=== PATIENT | male | born 1930 | race Hispanic/Latino ===

== ENCOUNTER 2017-09-17 06:10 | Inpatient (IN) | payer MEDICARE, BC ==
[2017-09-08 10:04] VITALS: BMI 24.2
[2017-09-17] MEDS ORDERED: HEPARIN-NS 5,000 UNITS/500 ML 10,000 UNIT/1,000 ML BAG IV ONE (07:29)
[2017-09-17] MEDS ORDERED: Iodixanol 320 MG/ML 200 ML BOTTLE IV ONE (07:29)
[2017-09-17] MEDS ORDERED: Midazolam 2 MG/2 ML VIAL ONE (07:46)
[2017-09-17] MEDS ORDERED: ceFAZolin IV 1 gm in Dextrose 1 GM/50 ML BAG IVPB ONE (07:47)
[2017-09-17] MEDS ORDERED: Sodium Chloride 0.9% 500 ML IV ONE ×2 (07:56→08:05)
[2017-09-17] MEDS ORDERED: Lactated Ringer's 1,000 ML IV ONE ×5 (08:00→13:01)
[2017-09-17] MEDS: Lidocaine 1% Inj (20ml) ONE ×2 (08:23→08:24)
[2017-09-17] MEDS ORDERED: HYDROmorphone 0.5 mg/0.5 ml ISec IVP PRN (09:47)
--- NOTE | 2017-09-17 10:24 | PCM.SURG1 ---
Surgeon's Initial Post Op Note - Surgeon's Notes Surgeon: robe Central Supply Technician Supervisor: karen Type of Anesthesia: IV Sedation Anesthesia Administered By: alvaro Pre-Operative Diagnosis: AAA Operative Findings: successful deployment of endologix graft. 25-60/16x40. proximal extension 28x75 Post-Operative Diagnosis: same Operation Performed: PEVAR. percutaneous endovascular aneurysm repair. with endologix graft Specimen/Specimens Removed: 0 Estimated Blood Loss: EBL {In ML}: 250 Blood Products Given: N/A Drains Used: No Drains Post-Op Condition: Good Date of Surgery/Procedure: 09/17/17 Time of Surgery/Procedure: 10:27
[2017-09-17] MEDS ORDERED: Oxycodone/Acetaminophen 5/325 mg Tab PO PRN (10:32)
[2017-09-17 11:11] LABS: BASO # 0.1 K/uL (0.0-0.2); EOS # 0.1 K/uL (0.0-0.7); EOS % 2.4 % (0.0-4.0); HEMATOCRIT 28.8 % (35.0-51.0); LYMPH # 1.3 K/uL (1.0-4.3); LYMPH % 21.9 % (20.0-40.0); MEAN CELL VOLUME 89.9 fL (80.0-94.0); MEAN CORPUSCULAR HEMOGLOBIN 30.5 pg (27.0-31.0); MEAN CORPUSCULAR HGB CONC 33.9 g/dL (33.0-37.0); MEAN PLATELET VOLUME 7.1 fL (7.2-11.7); MONO # 0.6 K/uL (0.0-0.8); MONO % 10.6 % (0.0-10.0); RED CELL DISTRIBUTION WIDTH 14.2 % (11.5-14.5); WHITE BLOOD COUNT 6.1 K/uL (4.8-10.8)
[2017-09-17 11:36] LABS: CHLORIDE 103 mmol/L (98-107); POTASSIUM 3.5 mmol/L (3.6-5.2); SODIUM 135 mmol/L (132-148)
[2017-09-17 11:38] LABS: BILIRUBIN,TOTAL 0.8 mg/dL (0.2-1.3); GFR AFRICAN-AMERICAN > 60
[2017-09-17 11:39] LABS: ALB/GLOB RATIO 0.9 (1.0-2.1); ALKALINE PHOSPHATASE 77 U/L (38-126); ALT/SGPT 30 U/L (21-72); AST/SGOT 19 U/L (17-59); BLOOD UREA NITROGEN 9 mg/dL (9-20); CARBON DIOXIDE 24 mmol/L (22-30); GLUCOSE,RANDOM 116 mg/dL (75-110); TOTAL PROTEIN 5.6 g/dL (6.3-8.3)
[2017-09-17] MEDS ORDERED: Dextrose 5%/0.45% NS 1,000 ML IV ONE (15:00)
--- NOTE | 2017-09-17 16:23 | RAD ---
PROCEDURE: Intraoperative fluoroscopy HISTORY: ABD. AORTIC ANEURYSM COMPARISON: Not available TECHNIQUE: Intraoperative fluoroscopy was provided for aorto bi-iliac stent placement. Total time of fluoroscopy was 689.3 seconds. FINDINGS: Multiple fluoroscopic spot films are submitted. These films are on file for review. IMPRESSION: Fluoroscopy provided.
[2017-09-17] MEDS: Dextrose 5%/0.45% NS 1,000 ML IV SCH ×3 (20:56→23:57)
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
--- NOTE | 2017-09-18 03:44 | OP ---
PROCEDURE DATE: 09/17/2017 PREOPERATIVE DIAGNOSIS: Abdominal aortic aneurysm. POSTOPERATIVE DIAGNOSIS: Abdominal aortic aneurysm. PROCEDURE CARRIED OUT: TAVR, percutaneous endovascular aneurysm repair using an Endologix graft. SURGEON: Dr. San. CO-SURGEON: Dr. Latham. COSTUMER: Dr. Shadi Avendano. TYPE OF ANESTHESIA: Local anesthesia. ANESTHESIA ADMINISTERED BY: Mr. YanPHILLIP INDICATIONS: An 87-year-old man found to have an abdominal aortic aneurysm, previously increased in size over 5.3 cm. OPERATIVE FINDINGS: 1. Renal artery: The accessory renal artery was broad in the right side. 2. There was a successful deployment of an Endologix stent graft without any evidence of any endoleak at the end of the procedure. DESCRIPTION OF PROCEDURE: The patient was given local anesthesia using ultrasound guidance. Both common femoral arteries were accessed, and using micropuncture technique, a guidewire is advanced through the level of the renal arteries. After this had been carried out, we then placed a snare up the left side and then subsequently placed the Endologix device on the right side. The wire was snared and brought down to the appropriate position and the device was loaded onto the aortic bifurcation. After this had been done successfully, we then placed a pigtail catheter up the left side. We obtained the level of renal arteries and then subsequently particularly the right renal accessory, which was the lowest vessel that we are going to. We then carefully mapped this out and deployed the second suprarenal extension to this level with good coverage of the neck of the graft, but no impingement on flow into the right side. This was successfully deployed. After this had been successfully deployed, we loosened all the devices so that this was appropriately positioned, and we ballooned the left common iliac artery with an 8 mm balloon, which was adequate for the area. We did not deploy any other balloons during the procedure. We then took a final run, which did not show any evidence of any endoleak. During the procedure, the patient received full anticoagulation with heparin. Perclose, 2 devices have been redeployed in the right groin to aid in the closure afterwards. Blood loss for the procedure was 250 to 300 mL, primarily due to ooze from the right groin device, but other than this everything went quite smoothly. So at the end, we had placed wires up into both the aorta on both sides. We deployed the graft successfully. We carried out balloon dilation in left common iliac artery inside the stent, and we had excellent flow and good closure in both sides with palpable pulses in feet. Steri-strips were applied to the groin. OPERATION CARRIED OUT: Percutaneous endovascular aneurysm repair using an Endologix graft. The dimensions of the graft were the proximal main body of the graft was 25 x 60 with 16 mm x 40 length limbs and the proximal renal extension was 28 x 75 device. There was excellent overlap in every point. Celso San Jr., MD
[2017-09-18] MEDS: Dextrose 5%/0.45% NS 1,000 ML IV SCH ×2 (05:47→10:54)
[2017-09-18 06:32] LABS: BASO # 0.1 K/uL (0.0-0.2); BASO % 0.5 % (0.0-2.0); EOS # 0.1 K/uL (0.0-0.7); EOS % 1.4 % (0.0-4.0); HEMATOCRIT 27.4 % (35.0-51.0); LYMPH # 1.3 K/uL (1.0-4.3); LYMPH % 12.4 % (20.0-40.0); MEAN CELL VOLUME 89.4 fL (80.0-94.0); MEAN CORPUSCULAR HEMOGLOBIN 30.9 pg (27.0-31.0); MEAN CORPUSCULAR HGB CONC 34.6 g/dL (33.0-37.0); MEAN PLATELET VOLUME 7.9 fL (7.2-11.7); MONO # 1.3 K/uL (0.0-0.8); MONO % 12.6 % (0.0-10.0); RED CELL DISTRIBUTION WIDTH 14.2 % (11.5-14.5); WHITE BLOOD COUNT 10.2 K/uL (4.8-10.8)
[2017-09-18 06:39] LABS: CHLORIDE 103 mmol/L (98-107); POTASSIUM 3.5 mmol/L (3.6-5.2); SODIUM 132 mmol/L (132-148)
[2017-09-18 06:41] LABS: BILIRUBIN,TOTAL 0.9 mg/dL (0.2-1.3); GFR AFRICAN-AMERICAN > 60
[2017-09-18 06:42] LABS: ALB/GLOB RATIO 0.9 (1.0-2.1); ALKALINE PHOSPHATASE 66 U/L (38-126); ALT/SGPT 25 U/L (21-72); AST/SGOT 20 U/L (17-59); BLOOD UREA NITROGEN 4 mg/dL (9-20); CALCIUM 8.1 mg/dl (8.6-10.4); CARBON DIOXIDE 22 mmol/L (22-30); GLUCOSE,RANDOM 109 mg/dL (75-110); PHOSPHOROUS 2.9 mg/dL (2.5-4.5); TOTAL PROTEIN 5.7 g/dL (6.3-8.3)
[2017-09-18 06:43] LABS: MAGNESIUM 1.9 mg/dL (1.6-2.3)
[2017-09-18 07:11] VITALS: BP 95/50; PULSE 69; RESP 15; O2SAT 96
[2017-09-18] MEDS ORDERED: Metoprolol Succinate 25 mg XL Tab PO SCH ×2 (10:00)
--- NOTE | 2017-09-18 14:46 | CP.PCM.PN ---
Subjective - Date & Time of Evaluation Date of Evaluation: 09/18/17 Time of Evaluation: 14:45 - Subjective Subjective: dw will dc home with niece pulses present no abd pain Hgb 9+ noted Objective - Vital Signs/Intake and Output Vital Signs (last 24 hours): Temp Pulse Resp BP Pulse Ox 97.6 F 69 15 95/50 L 96 09/18/17 00:02 09/18/17 07:00 09/18/17 07:00 09/18/17 06:54 09/18/17 07:00 Intake and Output: 09/18/17 09/18/17 06:59 18:59 Intake Total 1440 800 Output Total 1000 650 Balance 440 150 - Medications Medications: Current Medications Aspirin (Ecotrin) 81 mg PO DAILY [facility] Last Admin: 09/18/17 09:37 Dose: 81 mg Finasteride (Proscar) 5 mg PO DAILY [facility] Last Admin: 09/18/17 09:36 Dose: 5 mg Dextrose/Sodium Chloride (Dextrose 5%/0.45% Ns 1000 Ml) 1,000 mls @ 100 mls/hr IV .Q10H [facility] Last Admin: 09/18/17 10:54 Dose: 100 mls/hr Isosorbide Mononitrate (Imdur Er) 30 mg PO DAILY [facility] Last Admin: 09/18/17 09:34 Dose: 30 mg Methenamine Hippurate (Hiprex) 1 gm PO BID [facility] Metoprolol Succinate (Toprol Xl) 25 mg PO DAILY [facility] Last Admin: 09/18/17 09:37 Dose: Not Given Nitroglycerin (Nitrostat Sl Tab) 1 mg SL Q5M PRN PRN Reason: Other Oxycodone/Acetaminophen (Percocet 5/325 Mg Tab) 1 tab PO Q4H PRN PRN Reason: Pain, moderate (4-7) Stop: 09/20/17 10:33 Rosuvastatin Calcium (Crestor) 5 mg PO HS [facility] Last Admin: 09/17/17 21:42 Dose: 5 mg Terazosin HCl (Hytrin) 5 mg PO HS [facility] Last Admin: 09/17/17 21:39 Dose: 5 mg - Labs Labs: 09/18/17 06:20 09/18/17 06:18
[2017-09-18 15:11] VITALS: TEMP 98.3
== END 2017-09-18 15:50 | disposition home or self-care (01) | DRG 269 ==
LOC: C.9S 06:10 → C.9I 18:39
PROVIDERS: ADMIT Surgery Vascular Surgery; ATTEND Surgery Vascular Surgery
PROC: 04V03DZ Restriction of Abdominal Aorta with Intraluminal Device, Percutaneous Approach (ICD-10-PCS; principal; 2017-09-17 07:45)
DX: I71.4 Abdominal aortic aneurysm, without rupture (principal); I73.9 Peripheral vascular disease, unspecified; I10 Essential (primary) hypertension; I25.10 Atherosclerotic heart disease of native coronary artery without angina pectoris; E78.00 Pure hypercholesterolemia, unspecified; Z95.1 Presence of aortocoronary bypass graft; Q27.2 Other congenital malformations of renal artery; Z85.51 Personal history of malignant neoplasm of bladder; Z87.440 Personal history of urinary (tract) infections; Z87.891 Personal history of nicotine dependence; Z90.49 Acquired absence of other specified parts of digestive tract; Z86.010 Personal history of colon polyps; Z98.42 Cataract extraction status, left eye; Z98.41 Cataract extraction status, right eye

== ENCOUNTER 2018-01-26 08:47 | Observation (INO) | payer MEDICARE, BC ==
[2018-01-20 10:54] VITALS: BMI 21.7
[2018-01-26] MEDS ORDERED: Lactated Ringer's 1,000 ML IV ONE (11:50)
[2018-01-26] MEDS ORDERED: Bacitracin Ointment 30 GM TUBE ONE (11:54)
[2018-01-26] MEDS ORDERED: ceFAZolin 1 gm in NS 1 GM/100 ML BAG IVPB ONE (11:55)
[2018-01-26] MEDS ORDERED: Bupivacaine HCl 0.25% PF (10 ml) Inj ONE (11:55)
[2018-01-26] MEDS ORDERED: Propofol 10 mg/ml Inj (20 ML) ONE (11:57)
[2018-01-26] MEDS ORDERED: ePHEDrine 50 mg/ml Inj ONE (12:18)
[2018-01-26] MEDS ORDERED: Bupivacaine-Epi 0.5%-1:200,000 PF Inj IJ ONE (12:19)
[2018-01-26] MEDS ORDERED: HYDROmorphone 0.5 mg/0.5 ml ISec IVP PRN ×3 (13:07→15:24)
--- NOTE | 2018-01-26 13:11 | PCM.SURG1 ---
Surgeon's Initial Post Op Note - Surgeon's Notes Surgeon: Dr San Lab Specialist: Dr Carlisle PGY3, Dr Stewart PGY1 Type of Anesthesia: General LMA Pre-Operative Diagnosis: recurrent right inguinal hernia Operative Findings: see report Post-Operative Diagnosis: see report Operation Performed: right inguinal hernia repair w/ mesh Specimen/Specimens Removed: hernia sac Estimated Blood Loss: EBL {In ML}: 15 Blood Products Given: N/A Drains Used: No Drains Post-Op Condition: Good Date of Surgery/Procedure: 01/26/18 Time of Surgery/Procedure: 13:11
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
[2018-01-26 19:50] VITALS: RESP 20
[2018-01-26] MEDS: Oxycodone/Acetaminophen 5/325 mg Tab PO PRN (19:56)
--- NOTE | 2018-01-26 23:03 | OP ---
PREOPERATIVE DIAGNOSIS: Recurrent right inguinal hernia. POSTOPERATIVE DIAGNOSIS: Recurrent right inguinal hernia. OPERATION CARRIED OUT: Repair of recurrent right inguinal hernia with PHS, Prolene Hernia System. SURGEON: Celso San Jr., MD CASH OFFICE WORKER: . ANESTHESIOLOGIST: Mr. Khoury. INDICATIONS: The patient is an elderly man previous history of endovascular repair of abdominal aortic aneurysm with remote history of right inguinal hernia repair. OPERATIVE FINDINGS: 1. There was a large indirect sac. 2. The rest of the intraoperative findings were unremarkable. DESCRIPTION OF PROCEDURE: The patient was given general anesthesia and intravenous antibiotics. Venodyne boots were applied. Incision was made in the groin exposing the external oblique. The cord and its contents were identified. There was a large, what appeared to be direct defect, but there was also a large sac. This was excised and then inverted back into the peritoneal cavity. After this deployed PHS Prolene Hernia System to the appropriate location, secured to the underlying tissues with stitches and petar and closed the skin with subcuticular closure and Steri-Strips. Blood loss of the procedure was approximately 20 mL. Marcaine was injected prior to closure. Operation carried out is repair of recurrent right inguinal hernia with PHS Prolene Hernia System. Celso San Jr., MD cc: Virginia Olvera MD
[2018-01-27 01:41] VITALS: O2SAT 95
[2018-01-27] MEDS: Oxycodone/Acetaminophen 5/325 mg Tab PO PRN (02:42)
[2018-01-27 09:33] VITALS: BP 97/64; PULSE 68; TEMP 98.4
[2018-01-27] MEDS ORDERED: Metoprolol Succinate 25 mg XL Tab PO SCH (10:00)
--- NOTE | 2018-01-27 10:53 | CP.PCM.DIS ---
Provider - Provider Date of Admission: 01/26/18 13:07 Attending physician: Celso San Jr, MD Time Spent in preparation of Discharge (in minutes): 5 Hospital Course - Hospital Course Hospital Course: 87M came via SDS for RIH repair. PT tolerated surgery well. Kept overnight for observation. Pt doing well. d/C with rx for pain and follow up next week Discharge Exam - Head Exam Head Exam: NORMAL INSPECTION - Eye Exam Eye Exam: Normal appearance - ENT Exam ENT Exam: Mucous Membranes Moist - Respiratory Exam Respiratory Exam: absent: Accessory Muscle Use, Respiratory Distress - Cardiovascular Exam Cardiovascular Exam: REGULAR RHYTHM. absent: Tachycardia - GI/Abdominal Exam GI & Abdominal Exam: Soft. absent: Distended, Firm, Guarding, Tenderness Additional comments: RIH dressing c/d/i - Neurological Exam Neurological exam: Alert, Oriented x3 - Psychiatric Exam Psychiatric exam: Normal Affect, Normal Mood Discharge Plan - Follow Up Plan Condition: GOOD Disposition: HOME/ ROUTINE Additional Instructions: No heavy lifting for 4-6 weeks f/u in office next week
--- NOTE | 2018-01-27 19:50 | CARD ---
APPROVED REPORT EKG Measurement Heart [id number] <Conclusion> Normal sinus rhythm Right bundle branch block Inferior infarct, age undetermined Abnormal ECG
== END 2018-01-27 12:39 | disposition home or self-care (01) ==
LOC: C.SDS 08:47 → C.9S 13:07 → C.6T 19:04
PROVIDERS: ADMIT Surgery Vascular Surgery; ATTEND Surgery Vascular Surgery
DX: K40.91 Unilateral inguinal hernia, without obstruction or gangrene, recurrent (principal); I25.10 Atherosclerotic heart disease of native coronary artery without angina pectoris; Z95.1 Presence of aortocoronary bypass graft; E78.00 Pure hypercholesterolemia, unspecified; I10 Essential (primary) hypertension; Z87.891 Personal history of nicotine dependence
CPT/HCPCS: 49520; 88302; 93005; C1781; G0378; J0690; J1170; J2405; J2704; J3010; J7120